=== PATIENT | female | born 1980 | race Caucasian/White ===

== ENCOUNTER → 2016-06-17 | Outpatient (CLI) | payer MEDICARE, MEDICAID | LOC: MW.CHRC 08:00 | CPT/HCPCS: G0463 ==

== ENCOUNTER → 2016-06-26 | Outpatient (CLI) | payer MEDICARE, MEDICAID | LOC: MW.CHIM 07:56 | PROVIDERS: ATTEND Internal Medicine | DX: E66.01 Morbid (severe) obesity due to excess calories (principal); E03.9 Hypothyroidism, unspecified | CPT/HCPCS: 36415; 83540; 85025 ==

== ENCOUNTER → 2016-07-07 | Outpatient (CLI) | payer MEDICARE, MEDICAID | END | disposition home or self-care (01) | LOC: MW.CHOBGYN 09:51 | PROVIDERS: ATTEND Nurse Practitioner Women's Health | DX: N92.0 Excessive and frequent menstruation with regular cycle (principal); B37.2 Candidiasis of skin and nail | CPT/HCPCS: 36415; 83001; 83002; 84443; 84703; 85025; G0463 ==

== ENCOUNTER → 2016-07-09 | Outpatient (CLI) | payer MEDICARE, MEDICAID | LOC: MW.CHPOD 08:00 | PROVIDERS: ATTEND Podiatrist Foot & Ankle Surgery | DX: R23.4 Changes in skin texture (principal); L85.9 Epidermal thickening, unspecified; L85.3 Xerosis cutis; M79.673 Pain in unspecified foot | CPT/HCPCS: 99203 ==

== ENCOUNTER → 2016-07-10 | Outpatient (CLI) | payer MEDICARE, MEDICAID ==
--- NOTE | 2016-07-10 16:36 | US ---
EXAMINATION: Transvaginal pelvic ultrasound HISTORY: Metromenorrhagia COMPARISON: None TECHNIQUE: Grayscale, color Doppler, and spectral Doppler images obtained transvaginally. FINDINGS: Uterus appears normal in size, contour, and echogenicity without a focal uterine mass. End ometrial stripe thickness is mildly prominent at 2 cm. No significant free pelvic fluid. Both the left and right ovaries are not well-characterized. No adnexal masses identified. Normal col or and spectral Doppler flow. IMPRESSION: 1. Endometrial stripe thickness is mildly prominent 2 cm.
== END ==
LOC: MW.US 12:56
PROVIDERS: ATTEND Nurse Practitioner Women's Health
DX: N92.0 Excessive and frequent menstruation with regular cycle (principal)
CPT/HCPCS: 76830; 76830-26

== ENCOUNTER → 2016-07-16 | Outpatient (CLI) | payer MEDICARE, MEDICAID | LOC: MW.CHOBGYN 10:47 | PROVIDERS: ATTEND Nurse Practitioner Women's Health | DX: Z01.818 Encounter for other preprocedural examination (principal); N92.0 Excessive and frequent menstruation with regular cycle | CPT/HCPCS: 58100; 81025; 88305 ==

== ENCOUNTER → 2016-07-22 | Outpatient (CLI) | payer MEDICARE, MEDICAID | LOC: MW.CHOBGYN 08:00 | PROVIDERS: ATTEND Obstetrics & Gynecology | DX: N92.0 Excessive and frequent menstruation with regular cycle (principal) | CPT/HCPCS: G0463 ==

== ENCOUNTER → 2016-07-30 | Outpatient (CLI) | payer MEDICARE, MEDICAID ==
[2016-07-30 11:21] LABS: CHLORIDE,CL 107 mmol/L (98-110); SODIUM,NA 139 mmol/L (136-146)
== END ==
LOC: MW.CHOBGYN 08:00
PROVIDERS: ATTEND Obstetrics & Gynecology
DX: N92.0 Excessive and frequent menstruation with regular cycle (principal)
CPT/HCPCS: 36415; 80048; 84703; 85027; 86850; 86900; 86901; G0463

== ENCOUNTER 2016-07-31 11:37 | Day surgery (SDC) | payer MEDICARE, MEDICAID ==
[~2016-07-31 11:37] MED LIST: Lactated Ringers 1,000 ML IV SCH; Sodium Chloride 0.9% 10 ML Syringe FLUSH PRN; Sodium Chloride 0.9% 2.5 ML Syringe FLUSH PRN; ceFAZolin 2 GM in Premix Bag 1 BAG IV ONE
[2016-07-31] MEDS ORDERED: Lidocaine 2% 5 ML SDV ONE (13:06)
[2016-07-31] MEDS ORDERED: Ondansetron 4 MG/2 ML SDV ONE (13:06)
[2016-07-31] MEDS ORDERED: Propofol 200 MG/20 ML SDV ONE (13:06)
[2016-07-31] MEDS ORDERED: fentaNYL 250 MCG/5 ML SDV ONE (13:07)
[2016-07-31] MEDS ORDERED: Midazolam 1 MG/ML 2 ML SDV ONE (13:07)
--- NOTE | 2016-07-31 13:31 | PCM.PREANE ---
Preanesthetic Assessment - Procedure Proposed Procedure: Endometrial ablation - Anesthesia/Transfusion/Family Hx Anesthesia History: Prior Anesthesia Without Reaction Transfusion History: No Prior Transfusion(s) Intubation History: Unknown - Review of Systems General: Other (Obesity, recognized) Pulmonary: Other (exercise asthma; decreased frequency since quit smoking 1 yr ago) Cardiovascular: Dyspnea on Exertion Gastrointestinal: Other (GERD) Neurological: Headache (daily) Other: Reports: Thyroid Problems (hypothyroid) - Physical Assessment NPO Status Date: 07/30/16 NPO Status Time: 22:00 Height: 5 ft 4 in Weight: 328 lb ASA Class: 3 Mental Status: Alert & Oriented x3 Airway Class: Mallampati = 2 Dentition: Reports: Missing Tooth/Teeth (upper and lower) Thyro-Mental Finger Breadths: 4 Mouth Opening Finger Breadths: 3 ROM/Head Extension: Full Lungs: Clear to auscultation, Normal respiratory effort Cardiovascular: Regular Rate, Regular Rhythm, No Murmurs - Lab Values: Laboratory Last Values WBC 11.49 K/uL (4.0-11.0) H 07/30/16 10:47 RBC 4.93 M/uL (4.30-5.90) 07/30/16 10:47 Hgb 12.9 g/dL (12.0-16.0) 07/30/16 10:47 Hct 40.0 % (36.0-46.0) 07/30/16 10:47 MCV 81.1 fL (80.0-98.0) 07/30/16 10:47 MCH 26.2 pg (27.0-32.0) L 07/30/16 10:47 MCHC 32.3 g/dL (31.0-37.0) 07/30/16 10:47 RDW Std Deviation 45.6 fl (28.0-62.0) 07/30/16 10:47 RDW Coeff of Xuan 16 % (11.0-15.0) H 07/30/16 10:47 Plt Count 398 K/uL (150-400) 07/30/16 10:47 MPV 8.80 fL (7.40-12.00) 07/30/16 10:47 Nucleated RBC % 0.0 /100WBC 07/30/16 10:47 Nucleated RBCs # 0 K/uL 07/30/16 10:47 Sodium 139 mmol/L (136-146) 07/30/16 10:47 Potassium 4.1 mmol/L (3.5-5.1) 07/30/16 10:47 Chloride 107 mmol/L (98-110) 07/30/16 10:47 Carbon Dioxide 23 mmol/L (21-31) 07/30/16 10:47 BUN 9 mg/dL (6.0-23.0) 07/30/16 10:47 Creatinine 0.8 mg/dL (0.6-1.5) 07/30/16 10:47 Est Cr Clr Drug Dosing 84.76 mL/min 07/30/16 10:47 Estimated GFR (MDRD) > 60.0 ml/min 07/30/16 10:47 Glucose 86 mg/dL (60-110) 07/30/16 10:47 Calcium 9.6 mg/dL (8.8-10.8) 07/30/16 10:47 HCG, Qual NEGATIVE (NEG) 07/30/16 10:47 Blood Type A NEGATIVE 07/30/16 10:47 Antibody Screen NEGATIVE 07/30/16 10:47 - Allergies Allergies/Adverse Reactions: Allergies Allergy/AdvReac Type Severity Reaction Status Date / Time ciprofloxacin Allergy Swelling Verified 05/10/16 15:45 diclofenac [Diclofenac] Allergy Facial Verified 05/10/16 15:45 Swelling nitrofurantoin Allergy Rash Verified 05/10/16 15:45 [From Macrobid] nitrofurantoin Allergy Rash Verified 05/10/16 15:45 macrocrystalline [From Macrobid] cats Allergy Other Uncoded 03/01/16 20:26 - Blood Blood Available: No Product(s) Available: None - Acknowledgements Anesthesia Type Planned: General Anesthesia Pt an Appropriate Candidate for the Planned Anesthesia: Yes Alternatives and Risks of Anesthesia Discussed w Pt/Guardian: Yes Pt/Guardian Understands and Agrees with Anesthesia Plan: Yes PreAnesthesia Questionnaire HEENT History: Reports: Allergic rhinitis, Impaired vision, Other (see below) Other HEENT History: wears glasses Cardiovascular History: Reports: None Respiratory History: Reports: Asthma Gastrointestinal History: Reports: GERD, Hiatal hernia, Other (see below) Other Gastrointestinal History: Acid reflux Genitourinary History: Reports: None PARLIAMENTARY ARCHIVIST History: Reports: None Other OB/BYN History: tubal ligation Musculoskeletal History: Reports: Arthritis Neurological History: Psychiatric History: Reports: Anxiety, Depression Endocrine/Metabolic History: Reports: Hypothyroidism, Obesity/BMI 30+ Hematologic History: Reports: Anemia Immunologic History: Reports: None Oncologic (Cancer) History: Reports: None Dermatologic History: Reports: Other (see below) Other Dermatologic History: cutaneous candidiasis, uses powder to abd as directed - Infectious Disease History Infectious Disease History: Reports: Chicken pox - Past Surgical History Head Surgeries/Procedures: Reports: None HEENT Surgical History: Reports: None GI Surgical History: Reports: Cholecystectomy Female Surgical History: Reports: Tubal ligation Musculoskeletal Surgical History: Reports: Arthroscopic knee, Other (see below) Other Musculoskeletal Surgeries/Procedures:: bilateral knee surgery - SUBSTANCE USE Smoking Status *Q: Former Smoker Tobacco Use Within Last Twelve Months: Cigarettes Second Hand Smoke Exposure: No Days Per Week of Alcohol Use: 2 Number of Drinks Per Day: 3 Total Drinks Per Week: 6 Recreational Drug Use History: No - HOME MEDS Home Medications: Home Meds buPROPion [Wellbutrin] 100 mg PO DAILY 10/09/13 [History] Lurasidone [Latuda] 80 mg PO DAILY 10/16/14 [History] Dexlansoprazole [Dexilant] 30 mg PO DAILY 09/28/15 [History] Escitalopram Oxalate [Lexapro] 20 mg PO DAILY 09/28/15 [History] cloNIDine HCl [Catapres] 0.2 mg PO BEDTIME 09/28/15 [History] Loratadine [Claritin] 10 mg PO DAILY 05/10/16 [History] Albuterol [Ventolin HFA] 1 - 2 puff INH ASDIRECTED PRN 07/29/16 [History] Amitriptyline [Elavil] 3 tab PO BEDTIME 07/29/16 [History] Ferrous Sulfate [Iron] 325 mg PO BID 07/29/16 [History] Fesoterodine Fumarate [Toviaz] 4 mg PO DAILY 07/29/16 [History] Gabapentin [Neurontin] 1 tab PO WITHLUNCH 07/29/16 [History] Gabapentin [Neurontin] 600 mg PO BEDTIME 07/29/16 [History] Levothyroxine Sodium [Levoxyl] 50 mcg PO DAILY 07/29/16 [History] Multivitamin [Multivitamins] 1 tab PO DAILY 07/29/16 [History] Naproxen 1 tab PO BID PRN 07/29/16 [History] Nystatin 1 applic TOP ASDIRECTED 07/29/16 [History] - CURRENT (IN HOUSE) MEDS Current Meds: Current Medications Lactated Ringer's (Ringers, Lactated) 1,000 mls @ 500 mls/hr IV .BOLUS SHEFALI Last Admin: 07/31/16 13:03 Dose: 500 mls/hr Sodium Chloride (Saline Flush) 10 ml FLUSH ASDIRECTED PRN PRN Reason: Keep Vein Open Sodium Chloride (Saline Flush) 2.5 ml FLUSH ASDIRECTED PRN PRN Reason: Keep Vein Open Discontinued Medications Fentanyl (Sublimaze) Confirm Administered Dose 250 mcg .ROUTE .STK-MED ONE Stop: 07/31/16 13:08 Cefazolin Sodium/Dextrose 2 gm (/ Premix) 50 mls @ 100 mls/hr IV ONETIME ONE Stop: 07/30/16 09:33 Lidocaine (Xylocaine-Mpf 2%) Confirm Administered Dose 5 ml .ROUTE .STK-MED ONE Stop: 07/31/16 13:07 Midazolam HCl (Versed 1 Mg/Ml) Confirm Administered Dose 2 mg .ROUTE .STK-MED ONE Stop: 07/31/16 13:08 Ondansetron HCl (Zofran) Confirm Administered Dose 4 mg .ROUTE .STK-MED ONE Stop: 07/31/16 13:07 Propofol (Diprivan 20 Ml) Confirm Administered Dose 400 mg .ROUTE .STK-MED ONE Stop: 07/31/16 13:07
[2016-07-31] MEDS ORDERED: fentaNYL 100 MCG/2 ML SDV IVPUSH PRN (13:48)
[2016-07-31] MEDS ORDERED: Rocuronium 10 MG/ML 10 ML Syringe ONE (14:03)
[2016-07-31] MEDS ORDERED: Succinylcholine/Normal Saline 200 MG/10 ML Syringe ONE (14:03)
[2016-07-31] MEDS ORDERED: Sodium Chloride 0.9% 20 ML ONE (14:09)
[2016-07-31] MEDS ORDERED: ceFAZolin 1 GM Vial ONE (14:09)
[2016-07-31] MEDS ORDERED: Phenylephrine/Normal Saline 100 MCG/ML 10 ML Syringe ONE (14:09)
--- NOTE | 2016-07-31 14:52 | PCM.OPNOTE ---
- General Post-Op/Procedure Note Date of Surgery/Procedure: 07/31/16 Operative Procedure(s): Hystroscopy attemt endometrial ablation Pre Op Diagnosis: bleeding Post-Op Diagnosis: Same Anesthesia Technique: General ET tube Primary Surgeon: Micah Hylton EBL in mLs: 20 Complications: None Condition: Good
--- NOTE | 2016-07-31 14:53 | PCM.DCSUM1 ---
Discharge Summary - Discharge Data Discharge Date: 07/31/16 Discharge Disposition: Home, Self-Care 01 Condition: Good - Patient Summary/Data Operative Procedure(s) Performed: Hystroscopy attemt endometrial ablation - Patient Instructions Diet: Usual Diet as Tolerated Activity: As Tolerated Showering/Bathing: May Shower Notify Provider of: Fever, Increased Pain, Nausea and/or Vomiting - Discharge Plan Home Medications: Home Meds buPROPion [Wellbutrin] 100 mg PO DAILY 10/09/13 [History] Lurasidone [Latuda] 80 mg PO DAILY 10/16/14 [History] Dexlansoprazole [Dexilant] 30 mg PO DAILY 09/28/15 [History] Escitalopram Oxalate [Lexapro] 20 mg PO DAILY 09/28/15 [History] cloNIDine HCl [Catapres] 0.2 mg PO BEDTIME 09/28/15 [History] Loratadine [Claritin] 10 mg PO DAILY 05/10/16 [History] Albuterol [Ventolin HFA] 1 - 2 puff INH ASDIRECTED PRN 07/29/16 [History] Amitriptyline [Elavil] 3 tab PO BEDTIME 07/29/16 [History] Ferrous Sulfate [Iron] 325 mg PO BID 07/29/16 [History] Fesoterodine Fumarate [Toviaz] 4 mg PO DAILY 07/29/16 [History] Gabapentin [Neurontin] 1 tab PO WITHLUNCH 07/29/16 [History] Gabapentin [Neurontin] 600 mg PO BEDTIME 07/29/16 [History] Levothyroxine Sodium [Levoxyl] 50 mcg PO DAILY 07/29/16 [History] Multivitamin [Multivitamins] 1 tab PO DAILY 07/29/16 [History] Naproxen 1 tab PO BID PRN 07/29/16 [History] Nystatin 1 applic TOP ASDIRECTED 07/29/16 [History] - General Info Date of Service: 07/31/16 Functional Status: Reports: pain controlled - Review of Systems General: Reports: No Symptoms HEENT: Reports: no symptoms Pulmonary: Reports: no symptoms Cardiovascular: Reports: No Symptoms Gastrointestinal: Reports: No symptoms Genitourinary: Reports: no symptoms Musculoskeletal: Reports: no symptoms Skin: Reports: no symptoms Neurological: Reports: No Symptoms Psychiatric: Reports: no symptoms - Patient Data Vitals - Most Recent: Last Vital Signs Temp 36.8 C 07/31/16 12:45 Pulse 84 07/31/16 12:45 Resp 16 07/31/16 12:45 BP 114/58 L 07/31/16 12:45 Pulse Ox 97 07/31/16 12:45 Weight - Most Recent: 148.778 kg Med Orders - Current: Current Medications Fentanyl (Sublimaze) 50 mcg IVPUSH Q5M PRN PRN Reason: Pain (severe 7-10) Stop: 08/01/16 13:48 Lactated Ringer's (Ringers, Lactated) 1,000 mls @ 500 mls/hr IV .BOLUS SHEFALI Last Admin: 07/31/16 13:03 Dose: 500 mls/hr Sodium Chloride (Saline Flush) 10 ml FLUSH ASDIRECTED PRN PRN Reason: Keep Vein Open Sodium Chloride (Saline Flush) 2.5 ml FLUSH ASDIRECTED PRN PRN Reason: Keep Vein Open Discontinued Medications Cefazolin Sodium (Ancef) Confirm Administered Dose 2 gm .ROUTE .STK-MED ONE Stop: 07/31/16 14:10 Fentanyl (Sublimaze) Confirm Administered Dose 250 mcg .ROUTE .STK-MED ONE Stop: 07/31/16 13:08 Cefazolin Sodium/Dextrose 2 gm (/ Premix) 50 mls @ 100 mls/hr IV ONETIME ONE Stop: 07/30/16 09:33 Sodium Chloride (Normal Saline) Confirm Administered Dose 20 mls @ as directed .ROUTE .STK-MED ONE Stop: 07/31/16 14:10 Lidocaine (Xylocaine-Mpf 2%) Confirm Administered Dose 5 ml .ROUTE .STK-MED ONE Stop: 07/31/16 13:07 Midazolam HCl (Versed 1 Mg/Ml) Confirm Administered Dose 2 mg .ROUTE .STK-MED ONE Stop: 07/31/16 13:08 Ondansetron HCl (Zofran) Confirm Administered Dose 4 mg .ROUTE .STK-MED ONE Stop: 07/31/16 13:07 Phenylephrine HCl (Phenylephrine In Ns 100 Mcg/Ml) Confirm Administered Dose 1 mg .ROUTE .STK-MED ONE Stop: 07/31/16 14:10 Propofol (Diprivan 20 Ml) Confirm Administered Dose 400 mg .ROUTE .STK-MED ONE Stop: 07/31/16 13:07 Rocuronium [place] (Zemuron) Confirm Administered Dose 100 mg .ROUTE .STK-MED ONE Stop: 07/31/16 14:04 Succinylcholine Chloride (Succinylcholine In Ns Pf) Confirm Administered Dose 200 mg .ROUTE .STK-MED ONE Stop: 07/31/16 14:04 - Exam General: Reports: alert, oriented HEENT: Reports: Pupils equal, Pupils reactive, EOMI, Mucous membr. moist/pink Neck: Reports: supple Lungs: Reports: Clear to auscultation, Normal respiratory effort Cardiovascular: Reports: Regular Rate, Regular Rhythm Abdomen: Reports: bowel sounds present, soft, no tenderness, no distension (Female) Exam: Normal external exam, Normal speculum exam, Normal bimanual exam Rectal (Female) Exam: Normal Exam, Normal rectal tone Back Exam: Reports: normal inspection, full range of motion Extremities: Reports: no edema, normal pulses Skin: Reports: warm, dry, intact Wound/Incisions: Reports: healing well Neurological: Reports: no new focal deficit Psy/Mental Status: Reports: alert, normal affect, normal mood *Q Meaningful Use (DIS) - VTE *Q VTE Criteria *Q: - Stroke *Q Stroke Criteria *Q: - AMI *Q AMI Criteria *Q:
--- NOTE | 2016-07-31 15:29 | PCM48HPAN ---
Post Anesthesia Note - EVALUATION WITHIN 48HRS OF ANESTHETIC Vital Signs in Normal Range: Yes Patient Participated in Evaluation: Yes Respiratory Function Stable: Yes Airway Patent: Yes Cardiovascular Function Stable: Yes Hydration Status Stable: Yes Pain Control Satisfactory: Yes Nausea and Vomiting Control Satisfactory: Yes Mental Status Recovered: Yes
--- NOTE | 2016-07-31 15:29 | PCM.POSTAN ---
POST ANESTHESIA ASSESSMENT - MENTAL STATUS Mental Status: alert, oriented - RESPIRATORY Respiratory Status: respiratory rate WNL, airway patent, O2 saturation stable - CARDIOVASCULAR CV Status: pulse rate WNL, blood pressure stable - GASTROINTESTINAL GI Status: no symptoms - PAIN Pain Score: 0 - POST OP HYDRATION Hydration Status: adequate & stable - OBSERVATIONS Free Text/Narrative:: Procedure was not accomplished.
[2016-07-31 16:35] VITALS: BP 122/69
--- NOTE | 2016-08-01 06:02 | OR ---
SURGEON: Micah Hylton MD DATE OF PROCEDURE: 07-31-16 PREOPERATIVE DIAGNOSIS: Menometrorrhagia. POSTOPERATIVE DIAGNOSIS: Menometrorrhagia. OPERATION PERFORMED: Hysteroscopy and attempted endometrial ablation, however, we tried twice with 2 instruments but the instrument failed, so we abandoned doing the endometrial ablation, and then we are going to try to do it at some other time. PROCEDURE IN DETAIL: The patient was brought to the OR, properly identified, and after adequate level of anesthesia, the patient was prepped and draped in sterile fashion as usual. A straight catheter was used to empty the bladder. Then, the cervix was identified and dilated to accommodate the hysteroscope. Hysteroscopy was performed. There was excessive endometrial tissue but no other abnormality was seen. The uterine cavity was measured at 8 cm and then using the Radha, an ablation using the direction, as it is described twice but the device failed. After attempting another device, using it twice, the devices failed again. So, I felt at this time it is probably better to abandon the procedure. So, we abandoned the ablation to a later time after we discussed with the patient. The procedure was ended. Instrument and sponge count was correct. The patient tolerated the procedure well and went to recovery room in stable general condition. VLAD / ANA /[id number]
== END 2016-07-31 16:11 | disposition home or self-care (01) ==
LOC: MW.SDS 11:37
PROVIDERS: ATTEND Obstetrics & Gynecology
PROC: 0U5B7ZZ Destruction of Endometrium, Via Natural or Artificial Opening (ICD-10-PCS; principal; 2016-07-31)
DX: N92.1 Excessive and frequent menstruation with irregular cycle (principal); Z88.1 Allergy status to other antibiotic agents; J30.81 Allergic rhinitis due to animal (cat) (dog) hair and dander; Z88.8 Allergy status to other drugs, medicaments and biological substances; Z79.899 Other long term (current) drug therapy; J45.909 Unspecified asthma, uncomplicated; F41.9 Anxiety disorder, unspecified; F32.9 Major depressive disorder, single episode, unspecified; E03.9 Hypothyroidism, unspecified; Z91.09 Other allergy status, other than to drugs and biological substances; E66.01 Morbid (severe) obesity due to excess calories; K21.9 Gastro-esophageal reflux disease without esophagitis; Z98.890 Other specified postprocedural states; Z98.51 Tubal ligation status; Z78.9 Other specified health status; F17.210 Nicotine dependence, cigarettes, uncomplicated; Z72.0 Tobacco use
CPT/HCPCS: 36415; 58563; 80048; 84703; 85027; 86850; 86900; 86901; J0690; J2250; J2405; J3010; J7120; 00952; J2704

== ENCOUNTER → 2016-08-13 | Outpatient (CLI) | payer MEDICARE, MEDICAID ==
--- NOTE | 2016-08-14 14:53 | CR ---
EXAM DATE: 08/13/16 PATIENT'S AGE: 36 Patient: CHIP SEGOVIA Facility: [place], [place] Site . Site : 1980 Study: XRay Knee Bilateral [id number]/2017 2:11:37 PM Ordering Physician: Tim Zafar Final Report: HISTORY: Bilateral knee pain. Technique: Two views of both knees obtained weightbearing. Comparison: 12/26/2012. Findings: On the right, there is mild tricompartmental marginal osteophyte formation. No significant joint space narrowing. Patella jimenez is present. There is no acute fracture. No suprapatellar joint effusion. . On the left, there is mild tricompartmental marginal osteophyte formation. Patella jimenez as before. Small chronic appearing corticated ossicle along the superior aspect of the patella. No acute fracture. No suprapatellar joint effusion. Impression: 1. Mild degenerative arthrosis of both knees. 2. Patella jimenez bilaterally. Dictated by Rapheal Blevins MD @ Aug 14 2016 2:30PM (Electronic Signature) Report Signed by Proxy. AVELINA
--- NOTE | 2016-08-14 14:53 | CR ---
EXAM DATE: 08/13/16 PATIENT'S AGE: 36 Patient: CHIP SEGOVIA Facility: [place], [place] Site . Site : 1980 Study: XRay Knee Bilateral [id number]/26/2017 2:11:37 PM Ordering Physician: Tim Zafar Final Report: HISTORY: Bilateral knee pain. Technique: Two views of both knees obtained weightbearing. Comparison: 12/26/2012. Findings: On the right, there is mild tricompartmental marginal osteophyte formation. No significant joint space narrowing. Patella jimenez is present. There is no acute fracture. No suprapatellar joint effusion. . On the left, there is mild tricompartmental marginal osteophyte formation. Patella jimenez as before. Small chronic appearing corticated ossicle along the superior aspect of the patella. No acute fracture. No suprapatellar joint effusion. Impression: 1. Mild degenerative arthrosis of both knees. 2. Patella jimenez bilaterally. Dictated by Raphael Blevins MD @ Aug 14 2016 2:30PM (Electronic Signature) Report Signed by Proxy. AVELINA
== END ==
LOC: MW.CHIM 13:37
PROVIDERS: ATTEND Internal Medicine
DX: M19.90 Unspecified osteoarthritis, unspecified site (principal); M25.561 Pain in right knee; M25.562 Pain in left knee; G89.29 Other chronic pain; Z98.890 Other specified postprocedural states
CPT/HCPCS: 73560-26-LT; 73560-26-RT; 73560-LT; 73560-RT; G0463

== ENCOUNTER → 2016-08-21 | Outpatient (CLI) | payer MEDICARE, MEDICAID | LOC: MW.CHIM 08:00 | PROVIDERS: ATTEND Internal Medicine | DX: D50.9 Iron deficiency anemia, unspecified (principal); F41.9 Anxiety disorder, unspecified; F32.9 Major depressive disorder, single episode, unspecified; K21.9 Gastro-esophageal reflux disease without esophagitis | CPT/HCPCS: 99214 ==

== ENCOUNTER → 2016-08-25 | Outpatient (CLI) | payer MEDICARE, MEDICAID | END | disposition home or self-care (01) | LOC: MW.MNT 13:14 | PROVIDERS: ATTEND Internal Medicine | DX: E66.09 Other obesity due to excess calories (principal) | CPT/HCPCS: 97802 ==

== ENCOUNTER → 2016-08-26 | Outpatient (CLI) | payer MEDICARE, MEDICAID ==
[2016-08-26 08:33] LABS: CHLORIDE,CL 106 mmol/L (98-110); SODIUM,NA 141 mmol/L (136-146)
--- NOTE | 2016-08-26 11:48 | CR ---
EXAMINATION: Bilateral knees HISTORY: Pain COMPARISON: 08/13/2016 TECHNIQUE: PA and sunrise views bilaterally FINDINGS: There is minimal joint space narrowing within the patellofemoral compartments most promine nt along the lateral facet. Moderate osteophytes are noted. No fracture or acute osseous abnormality . IMPRESSION: Mild to moderate degenerative changes most prominent within the patellofemoral compartme nts.
== END ==
LOC: MW.LAB 07:30
PROVIDERS: ATTEND Nurse Practitioner Psychiatric/Mental Health
DX: M25.561 Pain in right knee (principal); M25.562 Pain in left knee; D64.9 Anemia, unspecified; N92.0 Excessive and frequent menstruation with regular cycle; M17.0 Bilateral primary osteoarthritis of knee; Z79.899 Other long term (current) drug therapy
CPT/HCPCS: 20610; 36415; 73560; 80053; 80061; 82947; 84443; 85025; 99204; G0463; J1040

== ENCOUNTER 2016-09-18 07:30 | Day surgery (SDC) | payer MEDICARE, MEDICAID ==
[~2016-09-18 07:30] MED LIST changes: +Ketorolac 30 MG/ML SDV ONE; +Lidocaine 2% 5 ML SDV ONE; +Midazolam 1 MG/ML 2 ML SDV ONE; +Ondansetron 4 MG/2 ML SDV ONE; +Propofol 200 MG/20 ML SDV ONE; -Sodium Chloride 0.9% 10 ML Syringe FLUSH PRN; -Sodium Chloride 0.9% 2.5 ML Syringe FLUSH PRN; -ceFAZolin 2 GM in Premix Bag 1 BAG IV ONE; +fentaNYL 100 MCG/2 ML SDV ONE
--- NOTE | 2016-09-18 08:07 | PCM.PREANE ---
Preanesthetic Assessment - Anesthesia/Transfusion/Family Hx Anesthesia History: Prior Anesthesia Without Reaction Family History of Anesthesia Reaction: No Transfusion History: No Prior Transfusion(s) Intubation History: Unknown - Review of Systems General: No Symptoms Pulmonary: No Symptoms Cardiovascular: No Symptoms Gastrointestinal: No symptoms Neurological: No Symptoms Other: Reports: None - Physical Assessment O2 Sat by Pulse Oximetry: 97 Respiratory Rate: 18 Vital Signs: Last Vital Signs Temp 36.8 C 09/18/16 07:50 Pulse 81 09/18/16 07:50 Resp 18 09/18/16 07:50 BP 122/76 09/18/16 07:50 Pulse Ox 97 09/18/16 07:50 Height: 1.63 m Weight: 146.964 kg ASA Class: 3 Mental Status: Alert & Oriented x3 Airway Class: Mallampati = 2 Dentition: Reports: Normal Dentition, Missing Tooth/Teeth (few) Thyro-Mental Finger Breadths: 3 Mouth Opening Finger Breadths: 2 ROM/Head Extension: Full Lungs: Clear to auscultation, Normal respiratory effort Cardiovascular: Regular Rate, Regular Rhythm - Lab Values: Laboratory Last Values Urine HCG, Qual NEGATIVE (NEGATIVE) 09/18/16 07:40 - Allergies Allergies/Adverse Reactions: Allergies Allergy/AdvReac Type Severity Reaction Status Date / Time ciprofloxacin Allergy Swelling Verified 05/10/16 15:45 diclofenac [Diclofenac] Allergy Facial Verified 05/10/16 15:45 Swelling nitrofurantoin Allergy Rash Verified 05/10/16 15:45 [From Macrobid] nitrofurantoin Allergy Rash Verified 05/10/16 15:45 macrocrystalline [From Macrobid] cats Allergy Other Uncoded 03/01/16 20:26 - Blood Blood Available: No - Anesthesia Plan Pre-Op Medication Ordered: None - Acknowledgements Anesthesia Type Planned: General Anesthesia Pt an Appropriate Candidate for the Planned Anesthesia: Yes Alternatives and Risks of Anesthesia Discussed w Pt/Guardian: Yes Pt/Guardian Understands and Agrees with Anesthesia Plan: Yes PreAnesthesia Questionnaire HEENT History: Reports: Allergic Rhinitis, Impaired Vision, Other (See Below) Other HEENT History: wears glasses Cardiovascular History: Reports: None Respiratory History: Reports: Asthma (exercize indused) Gastrointestinal History: Reports: GERD, Hiatal Hernia, Other (See Below) Other Gastrointestinal History: Acid reflux Genitourinary History: Reports: None HOME ENERGY CONSULTANT History: Reports: None Other OB/BYN History: tubal ligation Musculoskeletal History: Reports: Arthritis Neurological History: Reports: Headaches, Chronic Psychiatric History: Reports: Anxiety, Depression Endocrine/Metabolic History: Reports: Hypothyroidism, Obesity/BMI 30+ (morbid obesity BMI 55.6) Hematologic History: Reports: Anemia Immunologic History: Reports: None Oncologic (Cancer) History: Reports: None Dermatologic History: Reports: Other (See Below) Other Dermatologic History: cutaneous candidiasis, uses powder to abd as directed - Infectious Disease History Infectious Disease History: Reports: Chicken Pox - Past Surgical History Head Surgeries/Procedures: Reports: None HEENT Surgical History: Reports: None GI Surgical History: Reports: Cholecystectomy Female Surgical History: Reports: Tubal Ligation Musculoskeletal Surgical History: Reports: Arthroscopic Knee, Other (See Below) Other Musculoskeletal Surgeries/Procedures:: bilateral knee surgery Dermatological Surgical History: Reports: Other (See Below) (exc. of eliezer on top of the head) - SUBSTANCE USE Smoking Status *Q: Former Smoker (quit a year ago) Tobacco Use Within Last Twelve Months: Cigarettes Second Hand Smoke Exposure: No Days Per Week of Alcohol Use: 2 Number of Drinks Per Day: 3 Total Drinks Per Week: 6 Recreational Drug Use History: No - HOME MEDS Home Medications: Home Meds buPROPion [Wellbutrin] 100 mg PO DAILY 10/09/13 [History] Lurasidone [Latuda] 80 mg PO DAILY 10/16/14 [History] Dexlansoprazole [Dexilant] 30 mg PO DAILY 09/28/15 [History] Escitalopram Oxalate [Lexapro] 20 mg PO DAILY 09/28/15 [History] cloNIDine HCl [Catapres] 0.2 mg PO BEDTIME 09/28/15 [History] Loratadine [Claritin] 10 mg PO DAILY 05/10/16 [History] Albuterol [Ventolin HFA] 1 - 2 puff INH ASDIRECTED PRN 07/29/16 [History] Amitriptyline [Elavil] 3 tab PO BEDTIME 07/29/16 [History] Ferrous Sulfate [Iron] 325 mg PO BID 07/29/16 [History] Fesoterodine Fumarate [Toviaz] 4 mg PO DAILY 07/29/16 [History] Gabapentin [Neurontin] 1 tab PO WITHLUNCH 07/29/16 [History] Gabapentin [Neurontin] 600 mg PO BEDTIME 07/29/16 [History] Levothyroxine Sodium [Levoxyl] 50 mcg PO DAILY 07/29/16 [History] Multivitamin [Multivitamins] 1 tab PO DAILY 07/29/16 [History] Naproxen 1 tab PO BID PRN 07/29/16 [History] Nystatin 1 applic TOP ASDIRECTED 07/29/16 [History] - CURRENT (IN HOUSE) MEDS Current Meds: Current Medications Lactated Ringer's (Ringers, Lactated) 1,000 mls @ 125 mls/hr IV ASDIRECTED SHEFALI Last Admin: 09/18/16 07:51 Dose: 125 mls/hr Discontinued Medications Fentanyl (Sublimaze) Confirm Administered Dose 100 mcg .ROUTE .STK-MED ONE Stop: 09/18/16 07:26 Ketorolac Tromethamine (Toradol) Confirm Administered Dose 30 mg .ROUTE .STK- MED ONE Stop: 09/18/16 07:26 Lidocaine (Xylocaine-Mpf 2%) Confirm Administered Dose 5 ml .ROUTE .STK-MED ONE Stop: 09/18/16 07:26 Midazolam HCl (Versed 1 Mg/Ml) Confirm Administered Dose 2 mg .ROUTE .STK-MED ONE Stop: 09/18/16 07:26 Ondansetron HCl (Zofran) Confirm Administered Dose 4 mg .ROUTE .STK-MED ONE Stop: 09/18/16 07:26 Propofol (Diprivan 20 Ml) Confirm Administered Dose 200 mg .ROUTE .STK-MED ONE Stop: 09/18/16 07:26
[2016-09-18] MEDS ORDERED: fentaNYL 100 MCG/2 ML SDV IVPUSH PRN (09:31)
[2016-09-18] MEDS ORDERED: fentaNYL 100 MCG/2 ML SDV ONE (09:34)
[2016-09-18] MEDS ORDERED: Acetaminophen/oxyCODONE 325-5 MG Tab PO PRN ×2 (09:46)
[2016-09-18] MEDS ORDERED: Morphine 2 MG/ML Syringe IVPUSH PRN (09:46)
[2016-09-18] MEDS ORDERED: Promethazine 25 MG/ML SDV IM PRN (09:46)
[2016-09-18] MEDS ORDERED: Ketorolac 30 MG/ML SDV IVPUSH PRN (09:46)
[2016-09-18] MEDS ORDERED: Ketorolac 30 MG/ML SDV IVPUSH ONE (09:46)
[2016-09-18] MEDS ORDERED: Ondansetron 4 MG/2 ML SDV IVPUSH PRN (09:46)
[2016-09-18] MEDS ORDERED: Morphine 4 MG/ML Syringe IVPUSH PRN (09:46)
--- NOTE | 2016-09-18 09:53 | PCM.OPNOTE ---
- General Post-Op/Procedure Note Date of Surgery/Procedure: 09/18/16 Operative Procedure(s): Hystroscopy, Endometrial ablation Pre Op Diagnosis: bleeding Post-Op Diagnosis: Same Anesthesia Technique: General LMA Primary Surgeon: Micah Hylton Scout Executive: Mireya Pelaez EBL in mLs: 25 Complications: None Condition: Good
--- NOTE | 2016-09-18 09:54 | PCM.DCSUM1 ---
Discharge Summary - Discharge Data Discharge Date: 09/18/16 Discharge Disposition: Home, Self-Care 01 Condition: Good - Patient Summary/Data Operative Procedure(s) Performed: Hystroscopy, Endometrial ablation - Patient Instructions Diet: Usual Diet as Tolerated Notify Provider of: Fever, Increased Pain, Nausea and/or Vomiting - Discharge Plan Home Medications: Home Meds buPROPion [Wellbutrin] 100 mg PO DAILY 10/09/13 [History] Lurasidone [Latuda] 80 mg PO DAILY 10/16/14 [History] Dexlansoprazole [Dexilant] 30 mg PO DAILY 09/28/15 [History] Escitalopram Oxalate [Lexapro] 20 mg PO DAILY 09/28/15 [History] cloNIDine HCl [Catapres] 0.2 mg PO BEDTIME 09/28/15 [History] Loratadine [Claritin] 10 mg PO DAILY 05/10/16 [History] Albuterol [Ventolin HFA] 1 - 2 puff INH ASDIRECTED PRN 07/29/16 [History] Amitriptyline [Elavil] 3 tab PO BEDTIME 07/29/16 [History] Ferrous Sulfate [Iron] 325 mg PO BID 07/29/16 [History] Fesoterodine Fumarate [Toviaz] 4 mg PO DAILY 07/29/16 [History] Gabapentin [Neurontin] 1 tab PO WITHLUNCH 07/29/16 [History] Gabapentin [Neurontin] 600 mg PO BEDTIME 07/29/16 [History] Levothyroxine Sodium [Levoxyl] 50 mcg PO DAILY 07/29/16 [History] Multivitamin [Multivitamins] 1 tab PO DAILY 07/29/16 [History] Naproxen 1 tab PO BID PRN 07/29/16 [History] Nystatin 1 applic TOP ASDIRECTED 07/29/16 [History] - General Info Date of Service: 09/18/16 Functional Status: Reports: pain controlled - Review of Systems General: Reports: No Symptoms HEENT: Reports: no symptoms Pulmonary: Reports: no symptoms Cardiovascular: Reports: No Symptoms Gastrointestinal: Reports: No symptoms Genitourinary: Reports: no symptoms Musculoskeletal: Reports: no symptoms Skin: Reports: no symptoms Neurological: Reports: No Symptoms Psychiatric: Reports: no symptoms - Patient Data Vitals - Most Recent: Last Vital Signs Temp 36.8 C 09/18/16 07:50 Pulse 81 09/18/16 07:50 Resp 18 09/18/16 08:07 BP 122/76 09/18/16 07:50 Pulse Ox 97 09/18/16 08:07 Weight - Most Recent: 146.964 kg Lab Results - Last 24 hrs: Laboratory Results - last 24 hr 09/18/16 09/18/16 09/18/16 Range/Units 07:40 08:11 08:11 WBC 10.85 (4.0-11.0) K/uL RBC 4.62 (4.30-5.90) M/uL Hgb 12.1 (12.0-16.0) g/dL Hct 38.2 (36.0-46.0) % MCV 82.7 (80.0-98.0) fL MCH 26.2 L (27.0-32.0) pg MCHC 31.7 (31.0-37.0) g/dL RDW Std Deviation 47.0 (28.0-62.0) fl RDW Coeff of Xuan 16 H (11.0-15.0) % Plt Count 346 (150-400) K/uL MPV 8.50 (7.40-12.00) fL Nucleated RBC % 0.0 /100WBC Nucleated RBCs # 0 K/uL Urine HCG, Qual NEGATIVE (NEGATIVE) Blood Type A NEGATIVE Antibody Screen NEGATIVE Med Orders - Current: Current Medications Fentanyl (Sublimaze) 50 mcg IVPUSH Q5M PRN PRN Reason: Pain (severe 7-10) Stop: 09/19/16 09:33 Lactated Ringer's (Ringers, Lactated) 1,000 mls @ 125 mls/hr IV ASDIRECTED [facility] Last Admin: 09/18/16 07:51 Dose: 125 mls/hr Ketorolac Tromethamine (Toradol) 30 mg IVPUSH ONETIME ONE Stop: 09/18/16 09:47 Ketorolac Tromethamine (Toradol) 30 mg IVPUSH Q6H PRN PRN Reason: Pain (severe 7-10) Stop: 09/23/16 09:46 Morphine Sulfate (Morphine) 2 mg IVPUSH Q2H PRN PRN Reason: Pain (severe 7-10) Morphine Sulfate (Morphine) 4 mg IVPUSH Q2H PRN PRN Reason: Pain (severe 7-10) Ondansetron HCl (Zofran) 4 mg IVPUSH Q6H PRN PRN Reason: Nausea/Vomiting Oxycodone/Acetaminophen (Percocet 325-5 Mg) 1 tab PO Q4H PRN PRN Reason: Pain (moderate 4-6) Oxycodone/Acetaminophen (Percocet 325-5 Mg) 2 tab PO Q4H PRN PRN Reason: Pain (moderate 4-6) Promethazine HCl (Phenergan) 25 mg IM Q6H PRN PRN Reason: Nausea/Vomiting Discontinued Medications Fentanyl (Sublimaze) Confirm Administered Dose 100 mcg .ROUTE .STK-MED ONE Stop: 09/18/16 07:26 Fentanyl (Sublimaze) Confirm Administered Dose 100 mcg .ROUTE .STK-MED ONE Stop: 09/18/16 09:35 Ketorolac Tromethamine (Toradol) Confirm Administered Dose 30 mg .ROUTE .STK- MED ONE Stop: 09/18/16 07:26 Lidocaine (Xylocaine-Mpf 2%) Confirm Administered Dose 5 ml .ROUTE .STK-MED ONE Stop: 09/18/16 07:26 Midazolam HCl (Versed 1 Mg/Ml) Confirm Administered Dose 2 mg .ROUTE .STK-MED ONE Stop: 09/18/16 07:26 Ondansetron HCl (Zofran) Confirm Administered Dose 4 mg .ROUTE .STK-MED ONE Stop: 09/18/16 07:26 Propofol (Diprivan 20 Ml) Confirm Administered Dose 200 mg .ROUTE .STK-MED ONE Stop: 09/18/16 07:26 - Exam General: Reports: alert, oriented HEENT: Reports: Pupils equal, Pupils reactive, EOMI, Mucous membr. moist/pink Neck: Reports: supple Lungs: Reports: Clear to auscultation, Normal respiratory effort Cardiovascular: Reports: Regular Rate, Regular Rhythm Abdomen: Reports: bowel sounds present, soft, no tenderness, no distension (Female) Exam: Normal External Exam, Normal Speculum Exam, Normal Bimanual Exam Rectal (Female) Exam: Normal Exam, Normal Rectal Tone Back Exam: Reports: Normal Inspection, Full Range of Motion Extremities: Reports: no edema, normal pulses Skin: Reports: warm, dry, intact Wound/Incisions: Reports: healing well Neurological: Reports: no new focal deficit Psy/Mental Status: Reports: alert, normal affect, normal mood *Q Meaningful Use (DIS) - VTE *Q VTE Criteria *Q: - Stroke *Q Stroke Criteria *Q: - AMI *Q AMI Criteria *Q:
--- NOTE | 2016-09-18 10:36 | PCM.POSTAN ---
POST ANESTHESIA ASSESSMENT - MENTAL STATUS Mental Status: alert - RESPIRATORY Respiratory Status: respiratory rate WNL, airway patent, O2 saturation stable - CARDIOVASCULAR CV Status: pulse rate WNL, blood pressure stable - GASTROINTESTINAL GI Status: no symptoms - PAIN Pain Score: 0 - POST OP HYDRATION Hydration Status: adequate & stable - OBSERVATIONS Free Text/Narrative:: no anesthesia problems
[2016-09-18 11:06] VITALS: BP 144/92
--- NOTE | 2016-09-18 11:26 | OR ---
SURGEON: Micah Hylton MD DATE OF PROCEDURE: PREOPERATIVE DIAGNOSIS: Menometrorrhagia. POSTOPERATIVE DIAGNOSIS: Menometrorrhagia. OPERATION PERFORMED: Hysteroscopy and endometrial ablation using Argon laser. LARGE ANIMAL VETERINARIAN: JOHAN Bernal. ANESTHESIA: General endotracheal intubation by Dr. Faulkner. ESTIMATED BLOOD LOSS: Less than 25 mL. COMPLICATION: None. FINDINGS: Endometrial thickening. INDICATION FOR SURGERY: [place] refer to the admit note. PROCEDURE IN DETAIL: The patient was brought to the OR, properly identified, and after adequate level of anesthesia, the patient was placed in lithotomy position. Prepped and draped in sterile fashion as usual. Straight catheter was used to empty the bladder and speculum was placed in the vagina. The cervix was identified, sequentially dilated to accommodate the endometrial ablation device, and after measuring the endometrial cavity length and the cervical canal, the device was calibrated according to the instruction and placed in place and good cervical seal was obtained, and going through the check in the balance of the procedures and after passing all these checks, the Argon laser ablation was started and it was completed without any problem. After that, the device was withdrawn from the endometrial cavity and hysteroscopy was performed. There was very good ablation of the endometrium and it was satisfactory. That was documented by the hysteroscopy. Once this got done then the procedure was ended. The instrument and hardware were retrieved from the vagina. The patient tolerated the procedure well, went to recovery room in stable general condition. VLAD / ANA /[id number]
== END 2016-09-18 11:25 | disposition home or self-care (01) ==
LOC: MW.SDS 07:30
PROVIDERS: ATTEND Obstetrics & Gynecology
PROC: 0U5B8ZZ Destruction of Endometrium, Via Natural or Artificial Opening Endoscopic (ICD-10-PCS; principal; 2016-09-18)
DX: N92.1 Excessive and frequent menstruation with irregular cycle (principal); F41.9 Anxiety disorder, unspecified; M19.90 Unspecified osteoarthritis, unspecified site; J45.909 Unspecified asthma, uncomplicated; F32.9 Major depressive disorder, single episode, unspecified; K21.9 Gastro-esophageal reflux disease without esophagitis; E03.9 Hypothyroidism, unspecified; G57.90 Unspecified mononeuropathy of unspecified lower limb; N32.81 Overactive bladder; E66.01 Morbid (severe) obesity due to excess calories; M19.011 Primary osteoarthritis, right shoulder; F17.210 Nicotine dependence, cigarettes, uncomplicated; D64.9 Anemia, unspecified; Z88.1 Allergy status to other antibiotic agents; Z88.6 Allergy status to analgesic agent; Z91.048 Other nonmedicinal substance allergy status; Z79.899 Other long term (current) drug therapy; Z98.51 Tubal ligation status; Z98.890 Other specified postprocedural states; Z68.43 Body mass index [BMI] 50.0-59.9, adult
CPT/HCPCS: 36415; 58563; 81025; 85027; 86850; 86900; 86901; J1885; J2250; J2405; J3010; J7120; 00952; J2704

== ENCOUNTER 2018-12-24 21:36 | Emergency (ER) | payer MEDICARE ==
[2018-12-24] MEDS ORDERED: Sodium Chloride 0.9% 1,000 ML IV ONE (21:52)
--- NOTE | 2018-12-24 21:52 | EDM.PDOC ---
ED HPI GENERAL MEDICAL PROBLEM - General Chief Complaint: Gastrointestinal Problem Stated Complaint: PT HAS PAIN ON RIGHT SIDE Time Seen by Provider: 12/24/18 21:39 Source of Information: Reports: Patient History Limitations: Reports: No Limitations - History of Present Illness INITIAL COMMENTS - FREE TEXT/NARRATIVE: History of present illness: []Patient started having right-sided abdominal pain that radiates to her back between her shoulder blades this evening. She denies any fevers, chills, nausea , vomiting or diarrhea. Has not had this pain in the past. She states she has had her gallbladder removed and a tubal ligation. Patient denies any blood in her urine or pain when she urinates. Review of systems: As per history of present illness and below otherwise all systems reviewed and negative. Past medical history: As per history of present illness and as reviewed below otherwise noncontributory. Surgical history: As per history of present illness and as reviewed below otherwise noncontributory. Social history: No reported history of drug or alcohol abuse. Family history: As per history of present illness and as reviewed below otherwise noncontributory. Physical exam: General: Well developed, well nourished in NAD HEENT: Atraumatic, normocephalic, pupils reactive, negative for conjunctival pallor or scleral icterus, mucous membranes moist, throat clear, neck supple, nontender, trachea midline. Lungs: Clear to auscultation, breath sounds equal bilaterally, chest nontender. Patient has an area of bright erythematous moist rash consistent with [place] under her right breast Heart: S1S2, regular, negative for clicks, rubs, or JVD. Abdomen: NABS, Soft, nondistended, nontender. Negative for masses or hepatosplenomegaly. Negative for costovertebral tenderness. Pelvis: Stable nontender. Genitourinary: Deferred. Rectal: Deferred. Extremities: Atraumatic, negative for cords or calf pain. Neurovascular unremarkable. Neuro: Awake, alert, oriented. Cranial nerves II through XII unremarkable. Cerebellum unremarkable. Motor and sensory unremarkable throughout. Exam nonfocal. Skin:warm and dry Diagnostics: CBC, chemistry, lipase, hCG, UA Therapeutics: IV hydration ED Course: Candidiasis right chest wall Impression: Candidiasis Prescriptions: Plan: Definitive disposition and diagnosis as appropriate pending reevaluation and review of above. abd Pain Score (Numeric/FACES): 10 - Related Data Allergies Allergy/AdvReac Type Severity Reaction Status Date / Time ciprofloxacin Allergy Swelling Verified 12/24/18 21:52 diclofenac [Diclofenac] Allergy Facial Verified 12/24/18 21:52 Swelling nitrofurantoin Allergy Rash Verified 12/24/18 21:52 [From Macrobid] nitrofurantoin Allergy Rash Verified 12/24/18 21:52 macrocrystalline [From Macrobid] Home Meds: Home Meds buPROPion [Wellbutrin] 100 mg PO DAILY 10/09/13 [History] Lurasidone [Latuda] 80 mg PO DAILY 10/16/14 [History] Dexlansoprazole [Dexilant] 30 mg PO DAILY 09/28/15 [History] Escitalopram Oxalate [Lexapro] 20 mg PO DAILY 09/28/15 [History] cloNIDine HCl [Catapres] 0.2 mg PO BEDTIME 09/28/15 [History] Loratadine [Claritin] 10 mg PO DAILY 05/10/16 [History] Albuterol [Ventolin HFA] 1 - 2 puff INH ASDIRECTED PRN 07/29/16 [History] Amitriptyline [Elavil] 3 tab PO BEDTIME 07/29/16 [History] Ferrous Sulfate [Iron] 325 mg PO BID 07/29/16 [History] Fesoterodine Fumarate [Toviaz] 4 mg PO DAILY 07/29/16 [History] Gabapentin [Neurontin] 1 tab PO WITHLUNCH 07/29/16 [History] Gabapentin [Neurontin] 600 mg PO BEDTIME 07/29/16 [History] Levothyroxine Sodium [Levoxyl] 50 mcg PO DAILY 07/29/16 [History] Multivitamin [Multivitamins] 1 tab PO DAILY 07/29/16 [History] Naproxen 1 tab PO BID PRN 07/29/16 [History] Nystatin 1 applic TOP ASDIRECTED 07/29/16 [History] Nystatin [Nystop] 60 gm TP TID 14 Days #1 bottle 12/24/18 [Rx] Sulfamethoxazole/Trimethoprim [Septra DS] 1 each PO BID #14 tab 12/24/18 [Rx] Past Medical History HEENT History: Reports: Allergic Rhinitis, Impaired Vision, Other (See Below) Other HEENT History: wears glasses Cardiovascular History: Reports: None Respiratory History: Reports: Asthma Gastrointestinal History: Reports: GERD, Hiatal Hernia, Other (See Below) Other Gastrointestinal History: Acid reflux Genitourinary History: Reports: None [employer] History: Reports: None Other [employer] History: tubal ligation Musculoskeletal History: Reports: Arthritis Neurological History: Reports: Headaches, Chronic Psychiatric History: Reports: Anxiety, Depression Endocrine/Metabolic History: Reports: Hypothyroidism, Obesity/BMI 30+ Hematologic History: Reports: Anemia Immunologic History: Reports: None Oncologic (Cancer) History: Reports: None Dermatologic History: Reports: Other (See Below) Other Dermatologic History: cutaneous candidiasis, uses powder to abd as directed - Infectious Disease History Infectious Disease History: Reports: Chicken Pox - Past Surgical History GI Surgical History: Reports: Cholecystectomy Female Surgical History: Reports: Tubal Ligation Musculoskeletal Surgical History: Reports: Arthroscopic Knee, Other (See Below) Other Musculoskeletal Surgeries/Procedures:: bilateral knee surgery Social & Family History - Family History Family Medical History: Noncontributory Musculoskeletal: Reports: None Neurological: Reports: None - Caffeine Use Caffeine Use: Reports: Coffee, Soda, Tea ED ROS GENERAL - Review of Systems Review Of Systems: See Below ED EXAM, GI/ABD - Physical Exam Exam: See Below Course - Vital Signs Last Recorded V/S: Last Vital Signs Temp 96.4 F 12/24/18 21:50 Pulse 100 12/24/18 21:50 Resp 18 12/24/18 21:50 BP 144/98 H 12/24/18 21:50 Pulse Ox 96 12/24/18 21:50 - Orders/Labs/Meds Orders: Active Orders 24 hr Category Date Time Status CULTURE URINE [RM] Routine Lab 12/24/18 21:58 Received Sodium Chloride 0.9% [Normal Saline] 1,000 ml Med 12/24/18 21:52 Active IV .Bolus Sodium Chloride 0.9% [Saline Flush] Med 12/24/18 21:54 Active 10 ml FLUSH ASDIRECTED PRN Sodium Chloride 0.9% [Saline Flush] Med 12/24/18 21:54 Active 2.5 ml FLUSH ASDIRECTED PRN Saline Lock Insert [OM.PC] Stat Oth 12/24/18 21:52 Ordered Medication Orders Sodium Chloride (Normal Saline) 1,000 mls @ 999 mls/hr IV .Bolus ONE Stop: 12/24/18 22:52 Last Admin: 12/24/18 22:11 Dose: 999 mls/hr Sodium Chloride (Saline Flush) 10 ml FLUSH ASDIRECTED PRN PRN Reason: Keep Vein Open Sodium Chloride (Saline Flush) 2.5 ml FLUSH ASDIRECTED PRN PRN Reason: Keep Vein Open Labs: Laboratory Tests 12/24/18 12/24/18 12/24/18 Range/Units 21:58 21:58 22:00 WBC 16.14 H (4.0-11.0) K/uL RBC 5.21 (4.30-5.90) M/uL Hgb 14.7 (12.0-16.0) g/dL Hct 44.9 (36.0-46.0) % MCV 86.2 (80.0-98.0) fL MCH 28.2 (27.0-32.0) pg MCHC 32.7 (31.0-37.0) g/dL RDW Std Deviation 47.8 (28.0-62.0) fl RDW Coeff of Xuan 15 (11.0-15.0) % Plt Count 428 H (150-400) K/uL MPV 9.70 (7.40-12.00) fL Neut % (Auto) 62.8 (48.0-80.0) % Lymph % (Auto) 28.6 (16.0-40.0) % [place] % (Auto) 7.7 (0.0-15.0) % Eos % (Auto) 0.5 (0.0-7.0) % Baso % (Auto) 0.4 (0.0-1.5) % Neut # (Auto) 10.2 H (1.4-5.7) K/uL Lymph # (Auto) 4.6 H (0.6-2.4) K/uL [place] # (Auto) 1.2 H (0.0-0.8) K/uL Eos # (Auto) 0.1 (0.0-0.7) K/uL Baso # (Auto) 0.1 (0.0-0.1) K/uL Nucleated RBC % 0.0 /100WBC Nucleated RBCs # 0 K/uL Sodium (136-145) mmol/L Potassium (3.5-5.1) mmol/L Chloride (98-107) mmol/L Carbon Dioxide (21.0-32.0) mmol/L BUN (7.0-18.0) mg/dL Creatinine (0.6-1.0) mg/dL Est Cr Clr Drug Dosing mL/min Estimated GFR (MDRD) ml/min Glucose (74-106) mg/dL Calcium (8.5-10.1) mg/dL Total Bilirubin (0.2-1.0) mg/dL AST (15-37) IU/L ALT (14-63) IU/L Alkaline Phosphatase (46-116) U/L Total Protein (6.4-8.2) g/dL Albumin (3.4-5.0) g/dL Globulin (2.6-4.0) g/dL Albumin/Globulin Ratio (0.9-1.6) Urine Color YELLOW Urine Appearance SLT CLOUDY Urine pH 6.0 (5.0-8.0) Ur Specific [place] 1.020 (1.001-1.035) Urine Protein NEGATIVE (NEGATIVE) mg/dL Urine Glucose (UA) NEGATIVE (NEGATIVE) mg/dL Urine Ketones NEGATIVE (NEGATIVE) mg/dL Urine Occult Blood NEGATIVE (NEGATIVE) Urine Nitrite NEGATIVE (NEGATIVE) Urine Bilirubin NEGATIVE (NEGATIVE) Urine Urobilinogen 0.2 (<2.0) EU/dL Ur Leukocyte Esterase SMALL H (NEGATIVE) Urine RBC 0-2 (0-2/HPF) Urine WBC 8-10 (0-5/HPF) Ur Epithelial Cells MANY (NONE-FEW) Urine Bacteria FEW (NEGATIVE) Urine HCG, Qual NEGATIVE (NEGATIVE) 12/24/18 Range/Units 22:00 WBC (4.0-11.0) K/uL RBC (4.30-5.90) M/uL Hgb (12.0-16.0) g/dL Hct (36.0-46.0) % MCV (80.0-98.0) fL MCH (27.0-32.0) pg MCHC (31.0-37.0) g/dL RDW Std Deviation (28.0-62.0) fl RDW Coeff of Xuan (11.0-15.0) % Plt Count (150-400) K/uL MPV (7.40-12.00) fL Neut % (Auto) (48.0-80.0) % Lymph % (Auto) (16.0-40.0) % [place] % (Auto) (0.0-15.0) % Eos % (Auto) (0.0-7.0) % Baso % (Auto) (0.0-1.5) % Neut # (Auto) (1.4-5.7) K/uL Lymph # (Auto) (0.6-2.4) K/uL [place] # (Auto) (0.0-0.8) K/uL Eos # (Auto) (0.0-0.7) K/uL Baso # (Auto) (0.0-0.1) K/uL Nucleated RBC % /100WBC Nucleated RBCs # K/uL Sodium 138 (136-145) mmol/L Potassium 3.4 L (3.5-5.1) mmol/L Chloride 102 (98-107) mmol/L Carbon Dioxide 25.3 (21.0-32.0) mmol/L BUN 6 L (7.0-18.0) mg/dL Creatinine 1.0 (0.6-1.0) mg/dL Est Cr Clr Drug Dosing 66.51 mL/min Estimated GFR (MDRD) > 60.0 ml/min Glucose 107 H (74-106) mg/dL Calcium 9.8 (8.5-10.1) mg/dL Total Bilirubin 0.3 (0.2-1.0) mg/dL AST 23 (15-37) IU/L ALT 30 (14-63) IU/L Alkaline Phosphatase 113 (46-116) U/L Total Protein 7.4 (6.4-8.2) g/dL Albumin 3.3 L (3.4-5.0) g/dL Globulin 4.1 H (2.6-4.0) g/dL Albumin/Globulin Ratio 0.8 L (0.9-1.6) Urine Color Urine Appearance Urine pH (5.0-8.0) Ur Specific [place] (1.001-1.035) Urine Protein (NEGATIVE) mg/dL Urine Glucose (UA) (NEGATIVE) mg/dL Urine Ketones (NEGATIVE) mg/dL Urine Occult Blood (NEGATIVE) Urine Nitrite (NEGATIVE) Urine Bilirubin (NEGATIVE) Urine Urobilinogen (<2.0) EU/dL Ur Leukocyte Esterase (NEGATIVE) Urine RBC (0-2/HPF) Urine WBC (0-5/HPF) Ur Epithelial Cells (NONE-FEW) Urine Bacteria (NEGATIVE) Urine HCG, Qual (NEGATIVE) Meds: Medications Generic Name Dose Route Start Last Admin Trade Name Freq PRN Reason Stop Dose Admin Sodium Chloride 1,000 mls @ 999 mls/hr 12/24/18 21:52 12/24/18 22:11 Normal Saline IV 12/24/18 22:52 999 mls/hr .Bolus ONE Administration Sodium Chloride 10 ml 12/24/18 21:54 Saline Flush FLUSH ASDIRECTED PRN Keep Vein Open Sodium Chloride 2.5 ml 12/24/18 21:54 Saline Flush FLUSH ASDIRECTED PRN Keep Vein Open Discontinued Medications Generic Name Dose Route Start Last Admin Trade Name Freq PRN Reason Stop Dose Admin Trimethoprim/Sulfamethoxazole 1 tab 12/24/18 22:41 12/24/18 22:46 Septra Ds PO 12/24/18 22:42 1 tab ONETIME ONE Administration Departure - Departure Time of Disposition: 22:42 Disposition: Home, Self-Care 01 Condition: Good Clinical Impression: Candidiasis UTI (urinary tract infection) Qualifiers: Urinary tract infection type: site unspecified Hematuria presence: without hematuria Qualified Code(s): N39.0 - Urinary tract infection, site not specified - Discharge Information *PRESCRIPTION DRUG MONITORING PROGRAM REVIEWED*: No *COPY OF PRESCRIPTION DRUG MONITORING REPORT IN PATIENT VEE: No Prescriptions: Nystatin [Nystop] 60 gm TP TID 14 Days #1 bottle Sulfamethoxazole/Trimethoprim [Septra DS] 1 each PO BID #14 tab Instructions: Vaginal Yeast Infection, Adult, Urinary Tract Infection, Adult, [id number] Referrals: PCP,None [Primary Care Provider] - Forms: ED Department Discharge Additional Instructions: The following information is given to patients seen in the emergency department who are being discharged to home. This information is to outline your options for follow-up care. We provide all patients seen in our emergency department with a follow-up referral. The need for follow-up, as well as the timing and circumstances, are variable depending upon the specifics of your emergency department visit. If you don't have a primary care physician on staff, we will provide you with a referral. We always advise you to contact your personal physician following an emergency department visit to inform them of the circumstance of the visit and for follow-up with them and/or the need for any referrals to a consulting specialist. The emergency department will also refer you to a specialist when appropriate. This referral assures that you have the opportunity for follow-up care with a specialist. All of these measure are taken in an effort to provide you with optimal care, which includes your follow-up. Under all circumstances we always encourage you to contact your private physician who remains a resource for coordinating your care. When calling for follow-up care, please make the office aware that this follow-up is from your recent emergency room visit. If for any reason you are refused follow-up, please contact the [facility] Emergency Department at and asked to speak to the emergency department charge nurse. Take meds as directed, follow up with your primary care physician, return to ER if symptoms worsen or change. [facility] [address] [place] [id number] - My Orders Last 24 Hours: My Active Orders 12/24/18 21:52 Sodium Chloride 0.9% [Normal Saline] 1,000 ml IV .Bolus Saline Lock Insert [OM.PC] Stat 12/24/18 21:54 Sodium Chloride 0.9% [Saline Flush] 10 ml FLUSH ASDIRECTED PRN Sodium Chloride 0.9% [Saline Flush] 2.5 ml FLUSH ASDIRECTED PRN 12/24/18 21:58 CULTURE URINE [RM] Routine - Assessment/Plan Last 24 Hours: My Active Orders 12/24/18 21:52 Sodium Chloride 0.9% [Normal Saline] 1,000 ml IV .Bolus Saline Lock Insert [OM.PC] Stat 12/24/18 21:54 Sodium Chloride 0.9% [Saline Flush] 10 ml FLUSH ASDIRECTED PRN Sodium Chloride 0.9% [Saline Flush] 2.5 ml FLUSH ASDIRECTED PRN 12/24/18 21:58 CULTURE URINE [RM] Routine
[2018-12-24] MEDS ORDERED: Sodium Chloride 0.9% 10 ML Syringe FLUSH PRN (21:54)
[2018-12-24] MEDS ORDERED: Sodium Chloride 0.9% 2.5 ML Syringe FLUSH PRN (21:54)
[2018-12-24 22:36] LABS: BLOOD UREA NITROGEN,BUN 6 mg/dL (7.0-18.0); CARBON DIOXIDE,CO2 25.3 mmol/L (21.0-32.0); CHLORIDE,CL 102 mmol/L (98-107); GLUCOSE RANDOM 107 mg/dL (74-106); POTASSIUM,K 3.4 mmol/L (3.5-5.1); SODIUM,NA 138 mmol/L (136-145)
[2018-12-24] MEDS ORDERED: Sulfamethoxazole/Trimethoprim 800-160 MG Tab PO ONE (22:41)
[2018-12-24 22:50] VITALS: BP 111/72
== END 2018-12-24 22:55 | disposition home or self-care (01) ==
LOC: MW.ED 21:36
DX: N39.0 Urinary tract infection, site not specified (principal); B37.2 Candidiasis of skin and nail; F41.9 Anxiety disorder, unspecified; F32.9 Major depressive disorder, single episode, unspecified; E66.9 Obesity, unspecified; D64.9 Anemia, unspecified; E03.9 Hypothyroidism, unspecified; Z88.1 Allergy status to other antibiotic agents; Z79.899 Other long term (current) drug therapy; Z98.51 Tubal ligation status; Z90.49 Acquired absence of other specified parts of digestive tract
CPT/HCPCS: 80053; 81001; 81025; 85025; 87086; 96360; 99284; A9270; J7040

== ENCOUNTER 2018-12-28 18:51 | Emergency (ER) | payer MEDICAID, MEDICARE ==
--- NOTE | 2018-12-28 20:40 | EDM.PDOC ---
ED HPI GENERAL MEDICAL PROBLEM - General Chief Complaint: ENT Problem Stated Complaint: PT HAS SINUS INFECTION Time Seen by Provider: 12/28/18 20:36 Source of Information: Reports: Patient History Limitations: Reports: No Limitations - History of Present Illness INITIAL COMMENTS - FREE TEXT/NARRATIVE: HISTORY AND PHYSICAL: History of present illness: Patient is a 38-year-old female presents to the ED today with concern of a sinus infection. Patient states that she's had sinus infections in the past and that this is similar to her past infections. Patient states she's had the symptoms off and on over the past 2 weeks but over the past day or 2 the symptoms have worsened. Patient states she has taken [id number] Flonase without relief of symptoms. Patient denies any other symptoms or concerns. Patient denies fever, chills, chest pain, shortness of breath, or cough. Denies headache, neck stiff ness, change in vision, syncope, or near syncope. Denies nausea, vomiting, abdominal pain, diarrhea, constipation, or dysuria. Has not noted any blood in urine or stool. Patient has been eating and drinking appropriately. Review of systems: As per history of present illness and below otherwise all systems reviewed and negative. Past medical history: As per history of present illness and as reviewed below otherwise noncontributory. Surgical history: As per history of present illness and as reviewed below otherwise noncontributory. Social history: See social history for further information Family history: As per history of present illness and as reviewed below otherwise noncontributory. Physical exam: General: Patient is alert, oriented, and in no acute distress. Patient sitting comfortably on exam table. HEENT: Atraumatic, normocephalic, pupils equal and reactive bilaterally, negative for conjunctival pallor or scleral icterus, mucous membranes moist, TMs normal bilaterally, throat clear, neck supple, nontender, trachea midline. No drooling or trismus noted. No meningeal signs. No hot potato voice noted. Bilateral maxillary pain with palpation. Lungs: Clear to auscultation, breath sounds equal bilaterally, chest nontender. Heart: S1S2, regular rate and rhythm without overt murmur Abdomen: Soft, nondistended, nontender. Negative for masses or hepatosplenomegaly. Negative for costovertebral tenderness. Pelvis: Stable nontender. Genitourinary: Deferred. Rectal: Deferred. Skin: Intact, warm, dry. No lesions or rashes noted. Extremities: Atraumatic, negative for cords or calf pain. Neurovascular unremarkable. Neuro: Awake, alert, oriented. Cranial nerves II through XII unremarkable. Cerebellum unremarkable. Motor and sensory unremarkable throughout. Exam nonfocal. Notes: Discussed the importance for follow-up with primary care provider. Voices understanding and is agreeable to plan of care. Denies any further questions or concerns at this time. Diagnostics: None Therapeutics: None Prescription: Amoxicillin Impression: Acute maxillary sinusitis Plan: 1. Take medication as prescribed. You can alternate ibuprofen and Tylenol as checked for pain and discomfort. 2. Use [id number] Flonase as discussed. Return to the ED as needed and as discussed. Definitive disposition and diagnosis as appropriate pending reevaluation and review of above. Face/Facial Pain Score (Numeric/FACES): 10 - Related Data Allergies Allergy/AdvReac Type Severity Reaction Status Date / Time ciprofloxacin Allergy Swelling Verified 12/28/18 19:10 diclofenac [Diclofenac] Allergy Facial Verified 12/28/18 19:10 Swelling nitrofurantoin Allergy Rash Verified 12/28/18 19:10 [From Macrobid] nitrofurantoin Allergy Rash Verified 12/28/18 19:10 macrocrystalline [From Macrobid] Home Meds: Home Meds buPROPion [Wellbutrin] 100 mg PO DAILY 10/09/13 [History] Lurasidone [Latuda] 80 mg PO DAILY 10/16/14 [History] Dexlansoprazole [Dexilant] 30 mg PO DAILY 09/28/15 [History] Escitalopram Oxalate [Lexapro] 20 mg PO DAILY 09/28/15 [History] cloNIDine HCl [Catapres] 0.2 mg PO BEDTIME 09/28/15 [History] Loratadine [Claritin] 10 mg PO DAILY 05/10/16 [History] Albuterol [Ventolin HFA] 1 - 2 puff INH ASDIRECTED PRN 07/29/16 [History] Amitriptyline [Elavil] 3 tab PO BEDTIME 07/29/16 [History] Ferrous Sulfate [Iron] 325 mg PO BID 07/29/16 [History] Fesoterodine Fumarate [Toviaz] 4 mg PO DAILY 07/29/16 [History] Gabapentin [Neurontin] 1 tab PO WITHLUNCH 07/29/16 [History] Gabapentin [Neurontin] 600 mg PO BEDTIME 07/29/16 [History] Levothyroxine Sodium [Levoxyl] 50 mcg PO DAILY 07/29/16 [History] Multivitamin [Multivitamins] 1 tab PO DAILY 07/29/16 [History] Naproxen 1 tab PO BID PRN 07/29/16 [History] Nystatin 1 applic TOP ASDIRECTED 07/29/16 [History] Nystatin [Nystop] 60 gm TP TID 14 Days #1 bottle 12/24/18 [Rx] Sulfamethoxazole/Trimethoprim [Septra DS] 1 each PO BID #14 tab 12/24/18 [Rx] Amoxicillin 1,000 mg PO TID 5 Days #15 tab 12/28/18 [Rx] Past Medical History HEENT History: Reports: Allergic Rhinitis, Impaired Vision, Other (See Below) Other HEENT History: wears glasses Cardiovascular History: Reports: None Respiratory History: Reports: Asthma Gastrointestinal History: Reports: GERD, Hiatal Hernia, Other (See Below) Other Gastrointestinal History: Acid reflux Genitourinary History: Reports: None BOX STAPLER History: Reports: None Other BOX STAPLER History: tubal ligation Musculoskeletal History: Reports: Arthritis Neurological History: Reports: Headaches, Chronic Psychiatric History: Reports: Anxiety, Depression Endocrine/Metabolic History: Reports: Hypothyroidism, Obesity/BMI 30+ Hematologic History: Reports: Anemia Immunologic History: Reports: None Oncologic (Cancer) History: Reports: None Dermatologic History: Reports: Other (See Below) Other Dermatologic History: cutaneous candidiasis, uses powder to abd as directed - Infectious Disease History Infectious Disease History: Reports: None - Past Surgical History Head Surgeries/Procedures: Reports: None GI Surgical History: Reports: Cholecystectomy Female Surgical History: Reports: Tubal Ligation Musculoskeletal Surgical History: Reports: Arthroscopic Knee, Other (See Below) Other Musculoskeletal Surgeries/Procedures:: bilateral knee surgery Social & Family History - Family History Family Medical History: Noncontributory Musculoskeletal: Reports: None Neurological: Reports: None - Tobacco Use Smoking Status *Q: Never Smoker Second Hand Smoke Exposure: No - Caffeine Use Caffeine Use: Reports: Coffee - Recreational Drug Use Recreational Drug Use: No ED ROS GENERAL - Review of Systems Review Of Systems: ROS reveals no pertinent complaints other than HPI. ED EXAM, GENERAL - Physical Exam Exam: See Below (See dictation) Course - Vital Signs Last Recorded V/S: Last Vital Signs Temp 36.4 C 12/28/18 19:11 Pulse 100 12/28/18 19:11 Resp 16 12/28/18 19:11 BP 147/93 H 12/28/18 19:11 Pulse Ox 94 L 12/28/18 19:11 Departure - Departure Time of Disposition: 20:40 Disposition: Home, Self-Care 01 Clinical Impression: Maxillary sinusitis Qualifiers: Chronicity: unspecified Qualified Code(s): J32.0 - Chronic maxillary sinusitis - Discharge Information Prescriptions: Amoxicillin 1,000 mg PO TID 5 Days #15 tab Referrals: Jim Jefferson MD [Primary Care Provider] - Forms: ED Department Discharge Additional Instructions: The following information is given to patients seen in the emergency department who are being discharged to home. This information is to outline your options for follow-up care. We provide all patients seen in our emergency department with a follow-up referral. The need for follow-up, as well as the timing and circumstances, are variable depending upon the specifics of your emergency department visit. If you don't have a primary care physician on staff, we will provide you with a referral. We always advise you to contact your personal physician following an emergency department visit to inform them of the circumstance of the visit and for follow-up with them and/or the need for any referrals to a consulting specialist. The emergency department will also refer you to a specialist when appropriate. This referral assures that you have the opportunity for follow-up care with a specialist. All of these measure are taken in an effort to provide you with optimal care, which includes your follow-up. Under all circumstances we always encourage you to contact your private physician who remains a resource for coordinating your care. When calling for follow-up care, please make the office aware that this follow-up is from your recent emergency room visit. If for any reason you are refused follow-up, please contact the [facility] Emergency Department at and asked to speak to the emergency department charge nurse. [facility] [address] [place] [id number] [facility] [address] [place] [id number] 1. Take medication as prescribed. You can alternate ibuprofen and Tylenol as checked for pain and discomfort. 2. Use [id number] Flonase as discussed. Return to the ED as needed and as discussed.
[2018-12-28 20:46] VITALS: BP 142/98; PULSE 89
[2018-12-28] MEDS ORDERED: Ibuprofen 600 MG Tab PO ONE (20:48)
== END 2018-12-28 20:53 | disposition home or self-care (01) ==
LOC: MW.ED 18:51
DX: J01.00 Acute maxillary sinusitis, unspecified (principal); J32.0 Chronic maxillary sinusitis; J45.909 Unspecified asthma, uncomplicated; F41.9 Anxiety disorder, unspecified; F32.9 Major depressive disorder, single episode, unspecified; E03.9 Hypothyroidism, unspecified; D64.9 Anemia, unspecified; E66.9 Obesity, unspecified; Z88.8 Allergy status to other drugs, medicaments and biological substances; Z88.1 Allergy status to other antibiotic agents; Z79.899 Other long term (current) drug therapy; Z79.51 Long term (current) use of inhaled steroids; Z90.49 Acquired absence of other specified parts of digestive tract; Z98.51 Tubal ligation status; Z68.44 Body mass index [BMI] 60.0-69.9, adult
CPT/HCPCS: 99283; A9270; 99282